=== PATIENT | female | born 1970 | race Caucasian/White ===

== ENCOUNTER 2016-11-05 18:37 | Emergency (ER) | payer OTHER ==
[~2016-11-05] VITALS: Ht 172.7 cm; Wt 86.6 kg
[~2016-11-05 18:37] MED LIST: ALBUTEROL0.09 MG/A2 IH; AMOXIL500 MG PO; ANAPROX DS550 MG PO; ANUSOL-HC25 MG RC; ASMANEX220 MCG INH; ATIVAN PO; ATIVAN1 MG PO; AUGMENTIN 875 M1 TAB PO; AUGMENTIN 875875 MG PO; BACTRIM DS 8001 TA1 PO; CLINDAMYCIN HC300 MG PO; CYCLOBENZAPRINE10 MG PO; DAYPRO600 M1 PO; DITROPAN XL5 MG PO; ECPIRIN325 MG PO; FLEXERIL10 MG PO; FLEXERIL5 MG PO; FLOVENT 110 M110 MCG INH; HYDROCODONE BIT1 T11 PO; INDERAL LA120 MG PO; KEFLEX500 MG PO; LEXAPRO20 MG PO; LIDEX0.05% T; MACROBID100 M1 PO; MOTRIN600 MG PO; MOTRIN800 MG PO; NAPROSYN500 MG PO; NEURONTIN300 MG PO; NORCO 5-325 TA1 EACH PO; PREDNISONE20 MG PO; PRILOSEC20 M1 PO; PRILOSEC20 MG PO; PYRIDIUM200 MG PO; ROBAXIN-750750 MG PO; ROBAXIN750 MG PO; ROPINIROLE HYD0.5 MG PO; SEROQUEL50 MG PO; TESSALON PERLE200 MG PO; TOBRADEX 0.1%-0.5 ML OPH; TOPAMAX25 M3 PO; TOPAMAX50 MG PO; TRAMADOL HCL50 MG PO; TYLENOL EXTRA500 M2 PO; ULTRAM50 MG PO; VITAMIN D PO; VOLTAREN50 M1 PO; ZANTAC150 MG PO; ZOCOR20 MG PO; ZOFRAN4 MG PO
[2016-11-05 19:01] VITALS: BP 145/69
== END 2016-11-05 21:49 | disposition home or self-care (01) ==
LOC: ED 18:37
DX: S93.402D Sprain of unspecified ligament of left ankle, subsequent encounter (principal); F17.200 Nicotine dependence, unspecified, uncomplicated; Z98.890 Other specified postprocedural states; Z90.710 Acquired absence of both cervix and uterus; Z79.82 Long term (current) use of aspirin; Z88.5 Allergy status to narcotic agent; Z91.041 Radiographic dye allergy status; Z88.8 Allergy status to other drugs, medicaments and biological substances; Y92.9 Unspecified place or not applicable

== ENCOUNTER 2017-01-23 20:08 | Emergency (ER) | payer OTHER ==
[~2017-01-23] VITALS: Ht 172.7 cm; Wt 87.1 kg
[2017-01-23 21:02] VITALS: BP 122/81
== END 2017-01-23 22:28 | disposition home or self-care (01) ==
LOC: ED 20:08
DX: S63.502A Unspecified sprain of left wrist, initial encounter (principal); R03.0 Elevated blood-pressure reading, without diagnosis of hypertension; F17.200 Nicotine dependence, unspecified, uncomplicated; Z88.1 Allergy status to other antibiotic agents; Z88.6 Allergy status to analgesic agent; Z91.041 Radiographic dye allergy status; Z79.82 Long term (current) use of aspirin; Z79.899 Other long term (current) drug therapy; W54.1XXA Struck by dog, initial encounter; Y93.89 Activity, other specified; Y92.9 Unspecified place or not applicable; Y99.9 Unspecified external cause status

== ENCOUNTER 2017-02-13 23:03 | Emergency (ER) | payer OTHER ==
[~2017-02-13] VITALS: Ht 172.7 cm; Wt 86.2 kg
[2017-02-13 23:08] VITALS: BP 151/76
== END 2017-02-14 00:34 | disposition home or self-care (01) ==
LOC: ED 23:03
DX: S16.1XXA Strain of muscle, fascia and tendon at neck level, initial encounter (principal); I25.10 Atherosclerotic heart disease of native coronary artery without angina pectoris; F41.9 Anxiety disorder, unspecified; G89.29 Other chronic pain; Z79.82 Long term (current) use of aspirin; Z79.899 Other long term (current) drug therapy; Z91.041 Radiographic dye allergy status; Z88.6 Allergy status to analgesic agent; Z88.1 Allergy status to other antibiotic agents; Z88.4 Allergy status to anesthetic agent; W18.39XA Other fall on same level, initial encounter; Y93.89 Activity, other specified; Y92.89 Other specified places as the place of occurrence of the external cause; Y99.8 Other external cause status

== ENCOUNTER 2017-03-09 02:07 | Emergency (ER) | payer OTHER ==
[~2017-03-09] VITALS: Ht 172.7 cm; Wt 86.2 kg
--- NOTE | ~2017-03-09 | EKG ---
[place], [place] ELECTROCARDIOGRAM REPORT NAME: WILNER BATES UNIT #: [id number] ROOM: DOCTOR: MORELIA JACK MD BIRTHDATE: [birth year] DOS: 03/09/2017 TIME: 0211 hours. Sinus rhythm at a rate of 87. Left atrial enlargement. Left axis deviation. Incomplete right bundle branch block. Abnormal electrocardiogram. MORELIA JACK MD CM:[id number]:ELECTROCARDIOGRAM REPORT [id number] MORELIA JACK MD
[2017-03-09 02:09] VITALS: BP 156/83
[2017-03-09 02:29] LABS: BASO # 0.1 10*3/uL (0.0-0.1); BASO % 0.7 % (0.0-1.0); EOS # 0.4 10*3/uL (0.0-0.4); HEMOGLOBIN 13.2 g/dl (12.0-16.0); LYMPH # 3.4 10*3/uL (1.3-4.4); LYMPH % 28.2 % (27.0-41.0); MEAN CELL VOLUME 84.1 fl (81.0-99.0); MEAN CORPUSCULAR HGB 28.4 pg (27.0-31.0); MEAN CORPUSCULAR HGB CONC 33.8 g/dl (33.0-37.0); MEAN PLATELET VOLUME 9.6 fl (9.6-12.3); MONO # 0.6 10*3/uL (0.1-1.0); MONO % 5.1 % (3.0-9.0); NEUT # 7.5 10*3/uL (2.3-7.9); NEUT % 62.7 % (47.0-73.0); PLATELET COUNT AUTOMATED 207 10*3/uL (130-400); RED BLOOD COUNT 4.64 10*6/uL (4.10-5.10); WHITE BLOOD COUNT 11.9 10*3/uL (4.8-10.8)
[2017-03-09 02:32] VITALS: BP 136/80
[2017-03-09 02:42] LABS: INTERNATIONAL NORM RATIO 0.9 (2.0-3.5); PROTHROMBIN TIME 9.9 SECONDS (9.0-12.4)
[2017-03-09 02:47] LABS: ALBUMIN 3.9 gm/dl (3.1-4.5); ALKALINE PHOSPHATASE 51 U/L (45-117); BILIRUBIN, TOTAL 0.3 mg/dl (0.2-1.0); BUN 13 mg/dl (7-24); CARBON DIOXIDE 26 mmol/L (21-32); CHLORIDE 105 mmol/L (98-107); EST GLOM FILT AFRICAN AMERICAN > 60 ml/min; GLUCOSE 98 mg/dL (65-99); MAGNESIUM 2.2 mg/dL (1.5-2.1); POTASSIUM 3.9 mmol/L (3.5-5.1); SGOT/AST 18 IU/L (3-35); SGPT/ALT 16 U/L (12-78); SODIUM 141 mmol/L (136-145); TOTAL PROTEIN 6.9 gm/dL (6.4-8.2)
[2017-03-09 02:49] LABS: TROPONIN I < 0.015 ng/ml (<0.045)
[2017-03-09 02:57] VITALS: BP 132/83
[2017-03-09 03:24] VITALS: BP 137/78
[2017-03-09 03:51] VITALS: BP 146/85
== END 2017-03-09 04:30 | disposition left against medical advice (07) ==
LOC: ED 02:07 → EDHOLD 04:04 → ED 04:04 → EDHOLD 04:30
PROVIDERS: Emergency Medicine Emergency Medical Services
DX: R07.89 Other chest pain (principal); I25.10 Atherosclerotic heart disease of native coronary artery without angina pectoris; F17.200 Nicotine dependence, unspecified, uncomplicated; F41.9 Anxiety disorder, unspecified; Z79.82 Long term (current) use of aspirin; Z79.899 Other long term (current) drug therapy; Z88.1 Allergy status to other antibiotic agents; Z88.6 Allergy status to analgesic agent; Z91.041 Radiographic dye allergy status

== ENCOUNTER 2017-03-16 14:20 | Emergency (ER) | payer OTHER ==
[~2017-03-16] VITALS: Ht 172.7 cm; Wt 83.9 kg
[2017-03-16 14:25] VITALS: BP 141/78
[2017-03-16] MEDS ORDERED: AMOXICILLIN500 M2 PO (14:28)
[2017-03-16 14:49] LABS: BASO # 0.1 10*3/uL (0.0-0.1); BASO % 0.8 % (0.0-1.0); EOS # 0.2 10*3/uL (0.0-0.4); EOS % 2.7 % (1.0-4.0); HEMATOCRIT 37.7 % (37.0-47.0); HEMOGLOBIN 12.8 g/dl (12.0-16.0); LYMPH % 22.4 % (27.0-41.0); MEAN CELL VOLUME 85.3 fl (81.0-99.0); MEAN PLATELET VOLUME 9.7 fl (9.6-12.3); MONO # 0.7 10*3/uL (0.1-1.0); MONO % 7.7 % (3.0-9.0); NEUT % 66.1 % (47.0-73.0); PLATELET COUNT AUTOMATED 203 10*3/uL (130-400); RED BLOOD COUNT 4.42 10*6/uL (4.10-5.10); RED CELL DISTRI WIDTH 13.1 % (0-14.5)
[2017-03-16 15:11] LABS: BUN 12 mg/dl (7-24); CARBON DIOXIDE 24 mmol/L (21-32); CHLORIDE 108 mmol/L (98-107); EST GLOM FILT AFRICAN AMERICAN > 60 ml/min; GLUCOSE 88 mg/dL (65-99); POTASSIUM 4.3 mmol/L (3.5-5.1); SODIUM 141 mmol/L (136-145)
[2017-03-16] MEDS ORDERED: CLINDAMYCIN HC300 MG PO (15:22)
== END 2017-03-16 15:27 | disposition home or self-care (01) ==
LOC: ED 14:20
PROVIDERS: Emergency Medicine
DX: K04.7 Periapical abscess without sinus (principal); R59.1 Generalized enlarged lymph nodes; F17.200 Nicotine dependence, unspecified, uncomplicated; F41.9 Anxiety disorder, unspecified; G89.29 Other chronic pain; M25.519 Pain in unspecified shoulder; I25.10 Atherosclerotic heart disease of native coronary artery without angina pectoris; Z98.890 Other specified postprocedural states; Z90.710 Acquired absence of both cervix and uterus; Z79.899 Other long term (current) drug therapy; Z79.82 Long term (current) use of aspirin; Z91.041 Radiographic dye allergy status; Z88.5 Allergy status to narcotic agent; Z88.1 Allergy status to other antibiotic agents; Z88.8 Allergy status to other drugs, medicaments and biological substances

== ENCOUNTER 2017-05-25 23:22 | Emergency (ER) | payer OTHER ==
[~2017-05-25] VITALS: Ht 172.7 cm; Wt 81.6 kg
[~2017-05-25 23:22] MED LIST changes: +AMOXICILLIN500 M2 PO
[2017-05-25 23:28] VITALS: BP 128/87
[2017-05-25] MEDS ORDERED: MOTRIN 600 MG E4 TAB PO (23:50)
== END 2017-05-26 00:05 | disposition home or self-care (01) ==
LOC: ED 23:22
DX: S93.402A Sprain of unspecified ligament of left ankle, initial encounter (principal); F17.200 Nicotine dependence, unspecified, uncomplicated; Z88.1 Allergy status to other antibiotic agents; Z88.6 Allergy status to analgesic agent; Z91.041 Radiographic dye allergy status; Z79.82 Long term (current) use of aspirin; Z79.899 Other long term (current) drug therapy; W18.40XA Slipping, tripping and stumbling without falling, unspecified, initial encounter; Y93.89 Activity, other specified; Y92.89 Other specified places as the place of occurrence of the external cause; Y99.8 Other external cause status

== ENCOUNTER 2017-08-03 19:47 | Emergency (ER) | payer OTHER ==
[~2017-08-03] VITALS: Ht 172.7 cm; Wt 81.6 kg
[~2017-08-03 19:47] MED LIST changes: +MOTRIN 600 MG E4 TAB PO
[2017-08-03 20:08] VITALS: BP 143/78
[2017-08-03] MEDS ORDERED: CYCLOBENZAPRINE5 M3 PO (22:03)
[2017-08-03] MEDS ORDERED: MEDROL DOSEPAK4 MG PO (22:03)
== END 2017-08-03 22:25 | disposition home or self-care (01) ==
LOC: ED 19:47
DX: M25.512 Pain in left shoulder (principal); M54.2 Cervicalgia; F17.200 Nicotine dependence, unspecified, uncomplicated; Z98.890 Other specified postprocedural states; Z90.710 Acquired absence of both cervix and uterus; Z79.899 Other long term (current) drug therapy; Z79.82 Long term (current) use of aspirin; Z91.041 Radiographic dye allergy status; Z88.8 Allergy status to other drugs, medicaments and biological substances; Z88.5 Allergy status to narcotic agent; Z88.6 Allergy status to analgesic agent; Z88.1 Allergy status to other antibiotic agents

== ENCOUNTER 2018-01-03 23:14 | Emergency (ER) | payer OTHER ==
[~2018-01-03 23:14] MED LIST changes: +CYCLOBENZAPRINE5 M3 PO; +MEDROL DOSEPAK4 MG PO
[2018-01-03 23:22] VITALS: BP 140/80
== END 2018-01-04 01:15 | disposition home or self-care (01) ==
LOC: ED 23:14
DX: S13.9XXA Sprain of joints and ligaments of unspecified parts of neck, initial encounter (principal); M50.30 Other cervical disc degeneration, unspecified cervical region; F17.200 Nicotine dependence, unspecified, uncomplicated; G89.29 Other chronic pain; I25.10 Atherosclerotic heart disease of native coronary artery without angina pectoris; Z98.890 Other specified postprocedural states; Z90.710 Acquired absence of both cervix and uterus; Z79.899 Other long term (current) drug therapy; Z91.041 Radiographic dye allergy status; Z88.5 Allergy status to narcotic agent; Z88.1 Allergy status to other antibiotic agents; Z88.6 Allergy status to analgesic agent; Z79.82 Long term (current) use of aspirin; Y04.0XXA Assault by unarmed brawl or fight, initial encounter; Y93.89 Activity, other specified; Y92.89 Other specified places as the place of occurrence of the external cause; Y99.9 Unspecified external cause status

== ENCOUNTER 2018-04-24 02:21 | Emergency (ER) | payer OTHER ==
[~2018-04-24] VITALS: Ht 172.7 cm; Wt 86.2 kg
[2018-04-24 02:22] VITALS: BP 139/70
[2018-04-24 03:10] LABS: BASO # 0.1 10*3/uL (0.0-0.1); BASO % 0.5 % (0.0-1.0); EOS # 0.3 10*3/uL (0.0-0.4); EOS % 2.6 % (1.0-4.0); HEMATOCRIT 36.6 % (37.0-47.0); HEMOGLOBIN 12.1 g/dl (12.0-16.0); LYMPH # 2.9 10*3/uL (1.3-4.4); LYMPH % 25.3 % (27.0-41.0); MEAN CELL VOLUME 84.9 fl (81.0-99.0); MEAN CORPUSCULAR HGB 28.1 pg (27.0-31.0); MEAN CORPUSCULAR HGB CONC 33.1 g/dl (33.0-37.0); MEAN PLATELET VOLUME 10.3 fl (9.6-12.3); MONO # 0.6 10*3/uL (0.1-1.0); MONO % 5.6 % (3.0-9.0); NEUT # 7.5 10*3/uL (2.3-7.9); NEUT % 65.7 % (47.0-73.0); PLATELET COUNT AUTOMATED 199 10*3/uL (130-400); RED BLOOD COUNT 4.31 10*6/uL (4.10-5.10); RED CELL DISTRI WIDTH 12.6 % (0-14.5); WHITE BLOOD COUNT 11.5 10*3/uL (4.8-10.8)
[2018-04-24 03:26] LABS: ALBUMIN 3.9 gm/dl (3.1-4.5); ALKALINE PHOSPHATASE 47 U/L (45-117); BUN 15 mg/dl (7-24); CHLORIDE 106 mmol/L (98-107); CREATININE 0.92 mg/dL (0.55-1.02); POTASSIUM 3.8 mmol/L (3.5-5.1); SGOT/AST 16 IU/L (3-35); SGPT/ALT 20 U/L (12-78); SODIUM 141 mmol/L (136-145); TOTAL PROTEIN 6.7 gm/dL (6.4-8.2)
== END 2018-04-24 04:04 | disposition home or self-care (01) ==
LOC: ED 02:21
PROVIDERS: Emergency Medicine
DX: R11.10 Vomiting, unspecified (principal); T43.225A Adverse effect of selective serotonin reuptake inhibitors, initial encounter; R19.7 Diarrhea, unspecified; Z98.890 Other specified postprocedural states; Z90.710 Acquired absence of both cervix and uterus; Z79.899 Other long term (current) drug therapy; Z79.82 Long term (current) use of aspirin; Z88.6 Allergy status to analgesic agent; Z91.041 Radiographic dye allergy status; Z88.5 Allergy status to narcotic agent; Z88.1 Allergy status to other antibiotic agents; Y92.9 Unspecified place or not applicable

== ENCOUNTER 2018-05-22 22:58 | Emergency (ER) | payer OTHER ==
[~2018-05-22] VITALS: Ht 172.7 cm; Wt 81.6 kg
[2018-05-22 22:59] VITALS: BP 127/80
[2018-05-22] MEDS ORDERED: Motrin,Rufen800 MG PO (23:50)
== END 2018-05-23 00:03 | disposition home or self-care (01) ==
LOC: ED 22:58
DX: S96.912A Strain of unspecified muscle and tendon at ankle and foot level, left foot, initial encounter (principal); G89.29 Other chronic pain; M50.30 Other cervical disc degeneration, unspecified cervical region; I25.10 Atherosclerotic heart disease of native coronary artery without angina pectoris; Z79.899 Other long term (current) drug therapy; Z79.82 Long term (current) use of aspirin; Z91.041 Radiographic dye allergy status; Z88.1 Allergy status to other antibiotic agents; Z98.890 Other specified postprocedural states; Z90.710 Acquired absence of both cervix and uterus; Z88.6 Allergy status to analgesic agent; Z88.5 Allergy status to narcotic agent; X50.1XXA Overexertion from prolonged static or awkward postures, initial encounter; Y93.89 Activity, other specified; Y92.89 Other specified places as the place of occurrence of the external cause; Y99.9 Unspecified external cause status

== ENCOUNTER 2018-12-31 18:44 | Emergency (ER) | payer OTHER ==
[~2018-12-31] VITALS: Ht 172.7 cm; Wt 81.6 kg
[~2018-12-31 18:44] MED LIST changes: +Motrin,Rufen800 MG PO; +SPIRIVA RESPIMAT4 G1 INH
[2018-12-31 18:46] VITALS: BP 140/89
[2018-12-31] MEDS ORDERED: CYCLOBENZAPRINE5 M3 PO (21:28)
[2018-12-31] MEDS ORDERED: Motrin,Rufen800 MG PO (21:28)
== END 2018-12-31 21:22 | disposition home or self-care (01) ==
LOC: ED 18:44
DX: S16.1XXA Strain of muscle, fascia and tendon at neck level, initial encounter (principal); F17.200 Nicotine dependence, unspecified, uncomplicated; Z98.890 Other specified postprocedural states; Z90.710 Acquired absence of both cervix and uterus; Z79.899 Other long term (current) drug therapy; Z79.82 Long term (current) use of aspirin; Z91.041 Radiographic dye allergy status; Z88.5 Allergy status to narcotic agent; Z88.1 Allergy status to other antibiotic agents; Z88.8 Allergy status to other drugs, medicaments and biological substances; X50.0XXA Overexertion from strenuous movement or load, initial encounter; Y93.89 Activity, other specified; Y92.89 Other specified places as the place of occurrence of the external cause; Y99.9 Unspecified external cause status

== ENCOUNTER 2019-01-30 20:59 | Emergency (ER) | payer OTHER ==
[~2019-01-30] VITALS: Ht 172.7 cm; Wt 90.7 kg
[2019-01-30 21:00] VITALS: BP 119/78
== END 2019-01-30 21:45 | disposition home or self-care (01) ==
LOC: ED 20:59
DX: H00.016 Hordeolum externum left eye, unspecified eyelid (principal); Z91.041 Radiographic dye allergy status; Z88.6 Allergy status to analgesic agent; Z88.1 Allergy status to other antibiotic agents; Z88.8 Allergy status to other drugs, medicaments and biological substances; Z79.899 Other long term (current) drug therapy; Z79.82 Long term (current) use of aspirin

== ENCOUNTER 2019-02-26 18:02 | Emergency (ER) | payer OTHER ==
[~2019-02-26] VITALS: Ht 172.7 cm; Wt 92.5 kg
[2019-02-26 18:03] VITALS: BP 133/81
== END 2019-02-26 20:20 | disposition home or self-care (01) ==
LOC: ED 18:02
DX: S93.402D Sprain of unspecified ligament of left ankle, subsequent encounter (principal); S80.12XA Contusion of left lower leg, initial encounter; M25.562 Pain in left knee; Z88.8 Allergy status to other drugs, medicaments and biological substances; Z91.041 Radiographic dye allergy status; Z88.5 Allergy status to narcotic agent; Z88.1 Allergy status to other antibiotic agents; Z79.899 Other long term (current) drug therapy; Z79.82 Long term (current) use of aspirin; Z90.710 Acquired absence of both cervix and uterus; X50.1XXA Overexertion from prolonged static or awkward postures, initial encounter; Y93.89 Activity, other specified; Y92.096 Garden or yard of other non-institutional residence as the place of occurrence of the external cause; Y99.8 Other external cause status

== ENCOUNTER → 2019-02-26 | Outpatient (CLI) | payer OTHER ==
[2019-02-28 08:06] LABS: ALPHA-1-ANTITRYPSIN, SERUM 138 mg/dL (90-200)
== END | disposition home or self-care (01) ==
LOC: LAB 20:11
PROVIDERS: Internal Medicine Critical Care Medicine
DX: J44.9 Chronic obstructive pulmonary disease, unspecified (principal)

== ENCOUNTER 2020-01-02 20:42 | Emergency (ER) | payer OTHER ==
[~2020-01-02] VITALS: Wt 100.2 kg
[2020-01-02 20:58] VITALS: BP 149/87
== END 2020-01-02 21:35 | disposition home or self-care (01) ==
LOC: ED 20:42
DX: H10.9 Unspecified conjunctivitis (principal); J44.9 Chronic obstructive pulmonary disease, unspecified; I25.10 Atherosclerotic heart disease of native coronary artery without angina pectoris; E78.5 Hyperlipidemia, unspecified; F41.9 Anxiety disorder, unspecified; J45.909 Unspecified asthma, uncomplicated; K21.9 Gastro-esophageal reflux disease without esophagitis; F31.9 Bipolar disorder, unspecified; Z90.710 Acquired absence of both cervix and uterus; Z88.8 Allergy status to other drugs, medicaments and biological substances; Z91.041 Radiographic dye allergy status; Z79.2 Long term (current) use of antibiotics; Z79.82 Long term (current) use of aspirin; Z79.899 Other long term (current) drug therapy

== ENCOUNTER 2020-01-05 17:16 | Inpatient (IN) | payer OTHER ==
[~2020-01-05] VITALS: Ht 172.7 cm; Wt 98.5 kg
[2020-01-05 17:24] VITALS: BP 138/69
[2020-01-05 18:06] LABS: BASO % 0.2 % (0.0-1.0); EOS # 0.1 10*3/uL (0.0-0.4); EOS % 0.6 % (1.0-4.0); HEMATOCRIT 39.9 % (37.0-47.0); LYMPH # 0.7 10*3/uL (1.3-4.4); LYMPH % 5.5 % (27.0-41.0); MEAN CELL VOLUME 86.9 fl (81.0-99.0); MEAN CORPUSCULAR HGB 28.3 pg (27.0-31.0); MEAN CORPUSCULAR HGB CONC 32.6 g/dl (33.0-37.0); MEAN PLATELET VOLUME 10.3 fl (9.6-12.3); MONO # 0.8 10*3/uL (0.1-1.0); MONO % 6.1 % (3.0-9.0); NEUT # 10.9 10*3/uL (2.3-7.9); NEUT % 87.2 % (47.0-73.0); PLATELET COUNT AUTOMATED 173 10*3/uL (130-400); RED BLOOD COUNT 4.59 10*6/uL (4.10-5.10); RED CELL DISTRI WIDTH 12.7 % (0-14.5); WHITE BLOOD COUNT 12.5 10*3/uL (4.8-10.8)
[2020-01-05 18:17] LABS: ACT PARTIAL THROMBO TIME 31.1 SECONDS (20.0-32.1)
[2020-01-05 18:22] LABS: ALBUMIN 3.8 gm/dl (3.1-4.5); ALKALINE PHOSPHATASE 68 U/L (45-117); BUN 12 mg/dl (7-24); CHLORIDE 105 mmol/L (98-107); CREATININE 1.05 mg/dL (0.55-1.02); LIPASE 48 U/L (73-393); POTASSIUM 3.8 mmol/L (3.5-5.1); SGOT/AST 20 IU/L (3-35); SGPT/ALT 26 U/L (12-78); SODIUM 135 mmol/L (136-145); TOTAL PROTEIN 7.4 gm/dL (6.4-8.2); TROPONIN I < 0.015 ng/ml (<0.045)
--- NOTE | 2020-01-05 19:03 | NUR ---
NURSE TO NURSE REPORT GIVEN TO THIS RN.PT AWAITING ADMISSION.NS INFUSING.
[2020-01-05 19:23] VITALS: BP 130/62
--- NOTE | 2020-01-05 19:44 | NUR ---
INFUSION OF ROCEPHIN COMPLETED.
--- NOTE | 2020-01-05 19:44 | NUR ---
INFUSION OF ZITHROMAX INITIATED.
[2020-01-05 19:55] VITALS: BP 127/70
--- NOTE | 2020-01-05 19:55 | NUR ---
A 49, admitted to , under the services of RAJESH Becerra MD with a diagnosis of SEVERE SEPSIS, RESPIRATORY FAILURE, COPD EXACERBATION. Chief complaint is SHORTNESS OF BREATH AND COUGH. Patient arrived via bed from ER. Monitor applied. Initial assessment completed. Vital signs taken and recorded. RAJESH BECERRA MD notified of admission to the unit. Orders received. See assessment for past medical history, medications and allergies. Patient and/or family oriented to unit. [facility] visitation policy reviewed. Clothing/patient valuable form completed. NANDO CHICAS
[2020-01-05] MEDS ORDERED: OXYBUTYNIN5 MG PO (20:25)
[2020-01-05 21:26] LABS: BILIRUBIN NEGATIVE (NEGATIVE); BLOOD 3+ (NEGATIVE); CLARITY SL CLOUDY (CLEAR); COLOR YELLOW (YELLOW); GLUCOSE NEGATIVE (NEGATIVE); KETONE NEGATIVE (NEGATIVE); LEUKO ESTERASE NEGATIVE (NEGATIVE); NITRITE POSITIVE (NEGATIVE); PH 6.5 (5.0-9.0); SPECIFIC GRAVITY 1.015 (1.005-1.030); UROBILINOGEN 0.2 E.U./dl (0.2-1.0)
[2020-01-05 21:27] LABS: WBC 0-2 wbc/hpf (0-5)
[2020-01-05 21:28] LABS: BACTERIA 1+
[2020-01-06] VITALS: BP 136/77
--- NOTE | 2020-01-06 | NUR ---
PT RESTING IN BED, RESPIRATIONS EASY AND UNLABORED ON 2L NC. PT DENIES DISTRESS. NO COMPLAINTS ARE VOICED. PT DENIES NEEDING ANYTHING AT THIS TIME. CALL LIGHT IN REACH.
[2020-01-06 06:06] LABS: BUN 11 mg/dl (7-24); CHLORIDE 113 mmol/L (98-107); CHOLESTEROL 180 mg/dL (<200); CREATININE 0.77 mg/dL (0.55-1.02); HDL CHOLESTEROL 56 mg/dl (40-60); LDL CHOLESTEROL 117 mg/dL (9-159); POTASSIUM 3.7 mmol/L (3.5-5.1); SODIUM 141 mmol/L (136-145); TRIGLYCERIDES 37 mg/dl (<150); VLDL CHOLESTEROL 7 mg/dL (6-40)
[2020-01-06 06:10] LABS: BASO % 0.2 % (0.0-1.0); HEMATOCRIT 38.9 % (37.0-47.0); HEMOGLOBIN 12.3 g/dl (12.0-16.0); LYMPH # 0.9 10*3/uL (1.3-4.4); LYMPH % 6.5 % (27.0-41.0); MEAN CELL VOLUME 87.8 fl (81.0-99.0); MEAN CORPUSCULAR HGB 27.8 pg (27.0-31.0); MEAN CORPUSCULAR HGB CONC 31.6 g/dl (33.0-37.0); MEAN PLATELET VOLUME 10.8 fl (9.6-12.3); MONO # 0.5 10*3/uL (0.1-1.0); MONO % 3.8 % (3.0-9.0); NEUT # 11.9 10*3/uL (2.3-7.9); NEUT % 89.1 % (47.0-73.0); PLATELET COUNT AUTOMATED 170 10*3/uL (130-400); RED BLOOD COUNT 4.43 10*6/uL (4.10-5.10); RED CELL DISTRI WIDTH 12.8 % (0-14.5); WHITE BLOOD COUNT 13.3 10*3/uL (4.8-10.8)
[2020-01-06 06:14] LABS: THYROID STIM HORMONE (HS) 0.385 uIU/ml (0.358-4.75)
--- NOTE | 2020-01-06 06:51 | NUR ---
AM MEDS GIVEN. PT RESTING IN BED. NO COMPLAINTS ARE VOICED. RESPIRATIONS EASY AND UNLABORED. 2L NC IN PLACE. CALL LIGHT IN REACH.
[2020-01-06 07:47] LABS: VITAMIN D, 25-HYDROXY 11.7 ng/mL (30-100)
[2020-01-06 08:00] VITALS: BP 130/70
--- NOTE | 2020-01-06 08:30 | NUR ---
Corporate Human Resources Manager in to talk to patient. Patient states lives at home with her boyfriend and daughter. There are 2 steps in the home. Physician: Dr. Hu Sanchez [facility]: [facility] Home health services: none Patient's level of ADLs: INDEPENDENT Patient has working utilities: yes DME: [employer] Follow-up physician's appointment after d/c: she prefers to make her own follow up appt after discharge Does patient want to access PORTAL?: no Discharge plan discussed with patient. She lives at home with her boyfriend and daughter. She is independent in her ADLs and ambulation. Discussed home health care services and she denies any home needs at this time. When medically stable she will be discharged to home. She states her boyfriend will provide transportation on discharge. YULI QUIROZ
--- NOTE | 2020-01-06 08:51 | NUR ---
PT RESTING IN BED. NO DISTRESS NOTED. WILL MONITOR
[2020-01-06 12:00] VITALS: BP 130/68
[2020-01-06] MEDS ORDERED: ZITHROMAX250 MG PO (16:07)
--- NOTE | 2020-01-06 16:54 | NUR ---
Discharge instructions reviewed with patient/family. Patient receptive and verbalizes understanding. Follow-up care arranged. Written instructions given to patient/family. JASWINDER MULLINS
== END 2020-01-06 16:54 | disposition home or self-care (01) | DRG 720 ==
LOC: ED 17:16 → EDHOLD 19:02 → 4E 19:02
PROVIDERS: Nurse Practitioner Family; Student in an Organized Health Care Education/Training Program; ADMIT Internal Medicine
DX: A41.9 Sepsis, unspecified organism (principal); N17.0 Acute kidney failure with tubular necrosis; J18.9 Pneumonia, unspecified organism; R65.20 Severe sepsis without septic shock; J44.1 Chronic obstructive pulmonary disease with (acute) exacerbation; J44.0 Chronic obstructive pulmonary disease with (acute) lower respiratory infection; J96.20 Acute and chronic respiratory failure, unspecified whether with hypoxia or hypercapnia; E87.1 Hypo-osmolality and hyponatremia; R73.9 Hyperglycemia, unspecified; M25.519 Pain in unspecified shoulder; G89.29 Other chronic pain; F43.0 Acute stress reaction; F41.1 Generalized anxiety disorder; M50.30 Other cervical disc degeneration, unspecified cervical region; I25.10 Atherosclerotic heart disease of native coronary artery without angina pectoris; E78.5 Hyperlipidemia, unspecified; Z72.0 Tobacco use; Z71.6 Tobacco abuse counseling

== ENCOUNTER 2020-01-07 11:24 | Inpatient (IN) | payer OTHER ==
[~2020-01-07] VITALS: Ht 172.7 cm; Wt 98.4 kg
[~2020-01-07 11:24] MED LIST changes: +OXYBUTYNIN5 MG PO; +ZITHROMAX250 MG PO
[2020-01-07 12:00] VITALS: BP 151/90
[2020-01-07 12:05] VITALS: BP 151/90
--- NOTE | 2020-01-07 12:05 | NUR ---
A 49, admitted to , under the services of RAJESH Becerra MD with a diagnosis of COPD EXACERBATION. Chief complaint is SHORT OF BREATH AND HYPOXIA. Patient arrived via wheel chair from [place]. Monitor applied. Initial assessment completed. Vital signs taken and recorded. RAJESH BECERRA MD notified of admission to the unit. Orders received. See assessment for past medical history, medications and allergies. Patient and/or family oriented to unit. [facility] visitation policy reviewed. Clothing/patient valuable form completed. NANDO CHICAS
[2020-01-07 14:01] LABS: BASO % 0.1 % (0.0-1.0); HEMATOCRIT 43.2 % (37.0-47.0); HEMOGLOBIN 13.7 g/dl (12.0-16.0); LYMPH # 1.4 10*3/uL (1.3-4.4); LYMPH % 8.4 % (27.0-41.0); MEAN CELL VOLUME 88.9 fl (81.0-99.0); MEAN CORPUSCULAR HGB 28.2 pg (27.0-31.0); MEAN CORPUSCULAR HGB CONC 31.7 g/dl (33.0-37.0); MEAN PLATELET VOLUME 10.5 fl (9.6-12.3); MONO % 6.2 % (3.0-9.0); NEUT # 13.9 10*3/uL (2.3-7.9); NEUT % 84.8 % (47.0-73.0); PLATELET COUNT AUTOMATED 211 10*3/uL (130-400); RED BLOOD COUNT 4.86 10*6/uL (4.10-5.10); RED CELL DISTRI WIDTH 13.1 % (0-14.5); WHITE BLOOD COUNT 16.4 10*3/uL (4.8-10.8)
[2020-01-07 14:21] LABS: ALBUMIN 3.6 gm/dl (3.1-4.5); ALKALINE PHOSPHATASE 68 U/L (45-117); BUN 14 mg/dl (7-24); CHLORIDE 109 mmol/L (98-107); CREATININE 0.81 mg/dL (0.55-1.02); PHOSPHOROUS 2.2 mg/dL (2.5-4.9); POTASSIUM 3.8 mmol/L (3.5-5.1); SGOT/AST 42 IU/L (3-35); SGPT/ALT 35 U/L (12-78); SODIUM 140 mmol/L (136-145); TOTAL PROTEIN 7.6 gm/dL (6.4-8.2)
[2020-01-07 16:00] VITALS: BP 150/71
--- NOTE | 2020-01-07 17:39 | NUR ---
PT SITTING UP IN BED. DAUGHTER AT BEDSIDE. RESPIRATIONS EASY AND UNLABORED ON 3L NC. WILL MONITOR. CALL LIGHT IN REACH.
--- NOTE | 2020-01-07 19:30 | NUR ---
PT RESTING IN BED.VOICES NO CONCERNS AT THIS TIME. RESPS EASY AND NON LABORED. NO S/S OF DISTRESS NTOED. VSS. 3L OXYGEN INTACT. VSS. WHITE BOARD UPDATED. FAMILY AT BEDSIDE. CALL LIGHT WITHIN REACH
[2020-01-07 20:00] VITALS: BP 132/67
[2020-01-08] VITALS: BP 128/61
--- NOTE | 2020-01-08 01:59 | NUR ---
Patient resting quietly with no c/o discomfort. Respirations easy and regular. Vital signs stable. No overt distress. OXYGEN INTACT. CALL LIGHT WITHIN REACH. HISSOM,ANDREINA
--- NOTE | 2020-01-08 03:50 | NUR ---
24 HR chart check completed.
[2020-01-08 06:09] LABS: BASO % 0.1 % (0.0-1.0); HEMATOCRIT 39.6 % (37.0-47.0); HEMOGLOBIN 12.7 g/dl (12.0-16.0); LYMPH # 1.2 10*3/uL (1.3-4.4); LYMPH % 9.4 % (27.0-41.0); MEAN CORPUSCULAR HGB 27.9 pg (27.0-31.0); MEAN CORPUSCULAR HGB CONC 32.1 g/dl (33.0-37.0); MEAN PLATELET VOLUME 10.7 fl (9.6-12.3); MONO % 7.9 % (3.0-9.0); NEUT # 10.5 10*3/uL (2.3-7.9); NEUT % 82.3 % (47.0-73.0); PLATELET COUNT AUTOMATED 205 10*3/uL (130-400); RED BLOOD COUNT 4.55 10*6/uL (4.10-5.10); RED CELL DISTRI WIDTH 13.1 % (0-14.5); WHITE BLOOD COUNT 12.7 10*3/uL (4.8-10.8)
[2020-01-08 06:10] LABS: BUN 12 mg/dl (7-24); CHLORIDE 111 mmol/L (98-107); CREATININE 0.64 mg/dL (0.55-1.02); POTASSIUM 4.2 mmol/L (3.5-5.1); SODIUM 140 mmol/L (136-145)
[2020-01-08 08:00] VITALS: BP 132/74
--- NOTE | 2020-01-08 10:52 | NUR ---
DR WILSON NOTIFIED THAT PT C/O REDDENED AND FLUSHED SKIN/FACE/ARMS. PT FEELS THAT SHE MAY BE ALLERGIC TO ONE OF HER MEDICATIONS THAT WAS GIVEN THIS MORNING. PT HAD ALL SCHEDULED HOME MEDICATIONS, LOVNENOX, AND SOLU MEDROL. NEW ORDERS RECEIVED 25 MG BENADRYL IV NOW. WILL MEDICATE WHEN AVAILABLE TO PULL.
--- NOTE | 2020-01-08 11:09 | NUR ---
BENADRYL GIVEN AT THIS TIME. WILL MONITOR FOR EFFECTIVENESS. CALL LIGHT IN REACH.
[2020-01-08 12:00] VITALS: BP 144/81
--- NOTE | 2020-01-08 15:17 | NUR ---
RADIOLOGY TELLS THE MAINTENANCE WORKER SWIMMING POOL THAT THEY DONT BELIEVE THAT THE PT HAD HER VQ SCAN DONE YESTERDAY. RADIOLOGY STATES THAT THERE IS SOMEONE SLITTER CREASER SLOTTER HELPER FOR NUCLEAR MEDICINE ALL WEEKEND AND IF THE PHYSICIAN WOULD LIKE THE VQ SCAN DONE, SOMEONE WOULD NEED CALLED IN TO DO IT. DR WILSON NOTIFIED OF THIS AND STATES THAT IT IS OKAY TO WAIT UNTIL FRIDAY FOR THE VQ SCAN. NAVEEN GARCIA NOTIFIED OF THIS AND STATES THAT SHE WILL PLACE THE ORDER IN NUCLEAR MEDICINE'S BOX SO THAT IT CAN BE DONE ON FRIDAY. WILL PASS ON IN REPORT AND NOTIFY PATIENT.
[2020-01-08 16:00] VITALS: BP 133/71
--- NOTE | 2020-01-08 19:30 | NUR ---
PT RESTING IN BED. VOICES NO CONCERNS AT THIS TIME. RESPS EASY AND NON LABORED. NO S/S OF DISTRESS NOTED VSS. ON ROOM AIR. WHITE BOARD UPDATED. VSS. CALL LIGHT WITHIN REACH
[2020-01-08 20:00] VITALS: BP 137/72
[2020-01-09] VITALS: BP 147/67
--- NOTE | 2020-01-09 01:21 | NUR ---
24 HR chart check completed.
[2020-01-09 08:00] VITALS: BP 146/74
--- NOTE | 2020-01-09 08:00 | NUR ---
PATIENT SITTING UP IN BED, AWAKE, ALERT AND ORIENTED. NO STATED COMPLAINTS AT THIS TIME AND DENIES HAVING ANY PAIN. RESPIRATIONS ARE EASY AND REGULAR ON ROOM AIR. SPEECH CLEAR AND APPROPRIATE. PT VOICES DESIRE TO GO HOME. BED IN LOWEST LOCKED POSITION AND CALL LIGHT WITHIN REACH.
--- NOTE | 2020-01-09 08:49 | NUR ---
PT STATES SHE TAKE INDERAL [address] WILSON NOTIFIED AND ORDERS OBTAINED TO CHANGE DOSE FROM 20 MG TO 120 MG.
--- NOTE | 2020-01-09 11:49 | NUR ---
PT GOT A SHOWER. DENIES PAIN AND DIZZINESS AT THIS TIME. PT STATES SHE FEELS GOOD. RESPIRATIONS ARE EASY AND REGULAR. NO SOB NOTED. CALL LIGHT WITHIN REACH.
[2020-01-09 12:00] VITALS: BP 140/85
[2020-01-09 16:00] VITALS: BP 150/85
[2020-01-09] MEDS ORDERED: PREDNISONE10 MG PO (17:26)
--- NOTE | 2020-01-09 18:12 | NUR ---
Discharge instructions reviewed with patient/family. Patient receptive and verbalizes understanding. Follow-up care arranged. Written instructions given to patient/family. KARY LENTZ
== END 2020-01-09 18:12 | disposition home or self-care (01) | DRG 139 ==
LOC: 4E 11:24
PROVIDERS: Hospitalist; ADMIT Internal Medicine
DX: J18.9 Pneumonia, unspecified organism (principal); J44.0 Chronic obstructive pulmonary disease with (acute) lower respiratory infection; J44.1 Chronic obstructive pulmonary disease with (acute) exacerbation; J45.901 Unspecified asthma with (acute) exacerbation; R73.9 Hyperglycemia, unspecified; E83.39 Other disorders of phosphorus metabolism; A49.9 Bacterial infection, unspecified; R74.0 Nonspecific elevation of levels of transaminase and lactic acid dehydrogenase [LDH]; F41.1 Generalized anxiety disorder; F43.0 Acute stress reaction; I25.10 Atherosclerotic heart disease of native coronary artery without angina pectoris; E78.2 Mixed hyperlipidemia; N39.0 Urinary tract infection, site not specified

== ENCOUNTER 2020-07-13 21:21 | Emergency (ER) | payer OTHER ==
[~2020-07-13] VITALS: Ht 172.7 cm; Wt 83.5 kg
[~2020-07-13 21:21] MED LIST changes: +PREDNISONE10 MG PO
[2020-07-13 21:31] VITALS: BP 136/73
[2020-07-13] MEDS ORDERED: PREDNISONE20 M1 PO (22:36)
[2020-07-13] MEDS ORDERED: METHOCARBAMOL500 M1 PO (22:36)
== END 2020-07-13 22:43 | disposition home or self-care (01) ==
LOC: ED 21:21
DX: M54.2 Cervicalgia (principal); F17.200 Nicotine dependence, unspecified, uncomplicated; Z88.8 Allergy status to other drugs, medicaments and biological substances; Z88.1 Allergy status to other antibiotic agents; Z91.041 Radiographic dye allergy status; Z79.899 Other long term (current) drug therapy; Z79.82 Long term (current) use of aspirin

== ENCOUNTER 2020-09-13 21:24 | Emergency (ER) | payer OTHER ==
[~2020-09-13] VITALS: Ht 172.7 cm; Wt 91.2 kg
[~2020-09-13 21:24] MED LIST changes: +METHOCARBAMOL500 M1 PO; +PREDNISONE20 M1 PO
[2020-09-13 21:42] VITALS: BP 136/76
== END 2020-09-14 00:19 | disposition home or self-care (01) ==
LOC: ED 21:24
DX: S50.02XA Contusion of left elbow, initial encounter (principal); J44.9 Chronic obstructive pulmonary disease, unspecified; I25.10 Atherosclerotic heart disease of native coronary artery without angina pectoris; E78.5 Hyperlipidemia, unspecified; F41.9 Anxiety disorder, unspecified; K21.9 Gastro-esophageal reflux disease without esophagitis; F31.9 Bipolar disorder, unspecified; F17.200 Nicotine dependence, unspecified, uncomplicated; Z88.8 Allergy status to other drugs, medicaments and biological substances; Z91.041 Radiographic dye allergy status; Z88.1 Allergy status to other antibiotic agents; Z79.899 Other long term (current) drug therapy; Z79.2 Long term (current) use of antibiotics; Z79.82 Long term (current) use of aspirin; Z90.49 Acquired absence of other specified parts of digestive tract; Z98.61 Coronary angioplasty status; Z98.890 Other specified postprocedural states; W10.8XXA Fall (on) (from) other stairs and steps, initial encounter; Y93.89 Activity, other specified; Y92.89 Other specified places as the place of occurrence of the external cause; Y99.8 Other external cause status

== ENCOUNTER → 2020-12-13 | Outpatient (CLI) | payer OTHER | END | disposition home or self-care (01) | LOC: CARD 11:30 | PROVIDERS: ATTEND Internal Medicine | DX: R00.2 Palpitations (principal) ==

== ENCOUNTER 2021-05-05 16:45 | Emergency (ER) | payer OTHER ==
[~2021-05-05] VITALS: Ht 172.7 cm; Wt 93.0 kg
[2021-05-05 17:52] LABS: BASO # 0.1 10*3/uL (0.0-0.1); BASO % 0.6 % (0.0-1.0); EOS # 0.2 10*3/uL (0.0-0.4); EOS % 1.8 % (1.0-4.0); HEMATOCRIT 39.5 % (37.0-47.0); LYMPH # 1.9 10*3/uL (1.3-4.4); LYMPH % 18.8 % (27.0-41.0); MEAN CELL VOLUME 84.8 fl (81.0-99.0); MEAN CORPUSCULAR HGB 27.5 pg (27.0-31.0); MEAN CORPUSCULAR HGB CONC 32.4 g/dl (33.0-37.0); MONO # 0.7 10*3/uL (0.1-1.0); MONO % 7.2 % (3.0-9.0); NEUT # 7.1 10*3/uL (2.3-7.9); NEUT % 71.3 % (47.0-73.0); PLATELET COUNT AUTOMATED 238 10*3/uL (130-400); RED BLOOD COUNT 4.66 10*6/uL (4.10-5.10); RED CELL DISTRI WIDTH 12.7 % (0-14.5); WHITE BLOOD COUNT 9.9 10*3/uL (4.8-10.8)
[2021-05-05 18:07] LABS: ALBUMIN 3.8 gm/dl (3.1-4.5); ALKALINE PHOSPHATASE 87 U/L (45-117); BUN 11 mg/dl (7-24); CHLORIDE 107 mmol/L (98-107); CREATININE 0.84 mg/dL (0.55-1.02); POTASSIUM 4.2 mmol/L (3.5-5.1); SGOT/AST 14 IU/L (3-35); SGPT/ALT 23 U/L (12-78); SODIUM 135 mmol/L (136-145); TOTAL PROTEIN 7.7 gm/dL (6.4-8.2)
[2021-05-06 14:09] VITALS: BP 134/70
== END 2021-05-06 14:21 | disposition short-term general hospital (02) ==
LOC: ED 16:45
PROVIDERS: Emergency Medicine
DX: M27.2 Inflammatory conditions of jaws (principal); F17.200 Nicotine dependence, unspecified, uncomplicated; Z88.8 Allergy status to other drugs, medicaments and biological substances; Z91.041 Radiographic dye allergy status; Z88.5 Allergy status to narcotic agent; Z88.4 Allergy status to anesthetic agent; Z88.1 Allergy status to other antibiotic agents; Z79.899 Other long term (current) drug therapy; Z79.2 Long term (current) use of antibiotics; Z79.82 Long term (current) use of aspirin; Z98.890 Other specified postprocedural states; Z90.49 Acquired absence of other specified parts of digestive tract; Z98.61 Coronary angioplasty status; Z90.711 Acquired absence of uterus with remaining cervical stump

== ENCOUNTER → 2021-12-11 | Outpatient (CLI) | payer OTHER | END | disposition home or self-care (01) | LOC: MAMMO 01:30 | PROVIDERS: ATTEND Internal Medicine | DX: Z12.31 Encounter for screening mammogram for malignant neoplasm of breast (principal) ==

== ENCOUNTER 2022-05-29 10:53 | Emergency (ER) | payer OTHER ==
[~2022-05-29] VITALS: Ht 172.7 cm; Wt 93.0 kg
[2022-05-29 10:57] VITALS: BP 137/63
[2022-05-29 11:12] LABS: BASO % 0.4 % (0.0-1.0); EOS # 0.1 10*3/uL (0.0-0.4); EOS % 1.1 % (1.0-4.0); HEMATOCRIT 39.8 % (37.0-47.0); LYMPH # 0.8 10*3/uL (1.3-4.4); MEAN CELL VOLUME 83.3 fl (81.0-99.0); MEAN CORPUSCULAR HGB 27.6 pg (27.0-31.0); MEAN CORPUSCULAR HGB CONC 33.2 g/dl (33.0-37.0); MEAN PLATELET VOLUME 10.1 fl (9.6-12.3); MONO # 0.5 10*3/uL (0.1-1.0); MONO % 11.1 % (3.0-9.0); NEUT # 3.4 10*3/uL (2.3-7.9); NEUT % 71.2 % (47.0-73.0); PLATELET COUNT AUTOMATED 186 10*3/uL (130-400); RED BLOOD COUNT 4.78 10*6/uL (4.10-5.10); RED CELL DISTRI WIDTH 12.8 % (0-14.5); WHITE BLOOD COUNT 4.8 10*3/uL (4.8-10.8)
[2022-05-29 11:22] LABS: ACT PARTIAL THROMBO TIME 26.6 SECONDS (20.0-32.1)
[2022-05-29 11:33] LABS: ALKALINE PHOSPHATASE 77 U/L (45-117); BUN 10 mg/dl (7-24); CHLORIDE 108 mmol/L (98-107); POTASSIUM 3.8 mmol/L (3.5-5.1); SGOT/AST 25 IU/L (3-35); SGPT/ALT 31 U/L (12-78); SODIUM 142 mmol/L (136-145); TOTAL PROTEIN 6.9 gm/dL (6.4-8.2)
[2022-05-29 11:54] LABS: BILIRUBIN Negative (Negative); BLOOD 2+ (Negative); CLARITY Clear (Clear); COLOR Yellow (Yellow); GLUCOSE Negative (Negative); KETONE Negative (Negative); LEUKO ESTERASE Negative (Negative); NITRITE Negative (Negative); PH 6.5 (4.5-8.0); UROBILINOGEN 0.2 E.U./dl (0.0-1.0)
[2022-05-29 12:04] LABS: WBC 0-2 wbc/hpf (0-5)
== END 2022-05-29 14:20 | disposition home or self-care (01) ==
LOC: ED 10:53
PROVIDERS: Emergency Medicine; Physician Assistant
DX: R55 Syncope and collapse (principal); R11.10 Vomiting, unspecified; J44.9 Chronic obstructive pulmonary disease, unspecified; Z91.041 Radiographic dye allergy status; Z88.8 Allergy status to other drugs, medicaments and biological substances; Z88.1 Allergy status to other antibiotic agents; Z79.899 Other long term (current) drug therapy; Z79.82 Long term (current) use of aspirin; Z98.890 Other specified postprocedural states; Z90.49 Acquired absence of other specified parts of digestive tract; Z90.710 Acquired absence of both cervix and uterus; F17.200 Nicotine dependence, unspecified, uncomplicated

== ENCOUNTER 2023-03-27 21:30 | Emergency (ER) | payer OTHER ==
[~2023-03-27] VITALS: Ht 172.7 cm; Wt 93.0 kg
[2023-03-27 21:49] VITALS: BP 150/74
== END 2023-03-27 23:30 | disposition home or self-care (01) ==
LOC: ED 21:30
DX: S93.402A Sprain of unspecified ligament of left ankle, initial encounter (principal); F41.9 Anxiety disorder, unspecified; J45.909 Unspecified asthma, uncomplicated; I25.10 Atherosclerotic heart disease of native coronary artery without angina pectoris; K21.9 Gastro-esophageal reflux disease without esophagitis; F31.9 Bipolar disorder, unspecified; Z88.8 Allergy status to other drugs, medicaments and biological substances; Z88.5 Allergy status to narcotic agent; Z88.1 Allergy status to other antibiotic agents; Z88.6 Allergy status to analgesic agent; Z98.890 Other specified postprocedural states; Z90.49 Acquired absence of other specified parts of digestive tract; Z90.711 Acquired absence of uterus with remaining cervical stump; F17.200 Nicotine dependence, unspecified, uncomplicated; Z91.041 Radiographic dye allergy status; X50.1XXA Overexertion from prolonged static or awkward postures, initial encounter; Y93.89 Activity, other specified; Y92.89 Other specified places as the place of occurrence of the external cause; Y99.8 Other external cause status

== ENCOUNTER → 2024-02-17 | Outpatient (CLI) | payer OTHER ==
[2024-02-17 16:18] LABS: BUN 11 mg/dl (9-23); CHLORIDE 105 mmol/L (98-107); POTASSIUM 4.2 mmol/L (3.4-5.1)
== END | disposition home or self-care (01) ==
LOC: LAB 15:28
PROVIDERS: ATTEND Internal Medicine
DX: E87.5 Hyperkalemia (principal)

== ENCOUNTER → 2024-08-09 | Outpatient (CLI) | payer OTHER | END | disposition home or self-care (01) | LOC: US 02:03 | PROVIDERS: ATTEND Internal Medicine | DX: L98.9 Disorder of the skin and subcutaneous tissue, unspecified (principal) ==

== ENCOUNTER → 2024-09-22 | Outpatient (CLI) | payer OTHER ==
[~2024-09-22] MED LIST changes: +SODIUM BICARBONATE 4.2% 5 ML VIAL ONE
[2024-09-22 10:07] LABS: ACT PARTIAL THROMBO TIME 27.4 SECONDS (20.0-32.1)
== END | disposition home or self-care (01) ==
LOC: SDC 11:00 → EDSTATUS 11:00
PROVIDERS: ATTEND Internal Medicine
DX: R22.31 Localized swelling, mass and lump, right upper limb (principal); M79.89 Other specified soft tissue disorders; J44.1 Chronic obstructive pulmonary disease with (acute) exacerbation; I25.10 Atherosclerotic heart disease of native coronary artery without angina pectoris; J45.909 Unspecified asthma, uncomplicated; G43.909 Migraine, unspecified, not intractable, without status migrainosus; K21.9 Gastro-esophageal reflux disease without esophagitis; F41.9 Anxiety disorder, unspecified; E78.5 Hyperlipidemia, unspecified; F17.210 Nicotine dependence, cigarettes, uncomplicated; Z98.891 History of uterine scar from previous surgery; Z90.711 Acquired absence of uterus with remaining cervical stump; Z90.49 Acquired absence of other specified parts of digestive tract; Z98.890 Other specified postprocedural states; Z88.5 Allergy status to narcotic agent; Z88.1 Allergy status to other antibiotic agents; Z88.8 Allergy status to other drugs, medicaments and biological substances; Z79.82 Long term (current) use of aspirin; Z79.899 Other long term (current) drug therapy; Z82.49 Family history of ischemic heart disease and other diseases of the circulatory system